=== PATIENT | male | born 1975 | race Caucasian/White ===

== ENCOUNTER 2020-03-02 16:33 | Emergency (ER) | payer OTHER ==
[2020-03-02 16:46] VITALS: BP 122/84; PULSE 70; TEMP 99; BMI 24.3
[2020-03-02] MEDS ORDERED: RABIES VACCINE (PCEC)/PF 2.5 UNIT/VIAL IM ONE ×2 (16:50→17:40)
[2020-03-02] MEDS ORDERED: RABIES IMMUNE GLOBULIN 300 UNITS/1 ML VIAL IM ONE (16:50)
--- NOTE | 2020-03-02 16:55 | PDOC ---
History of Present Illness - General Chief Complaint: Bite Stated Complaint: RACOON BITE Time Seen by Provider: 03/02/20 16:36 - History of Present Illness Initial Comments: 03/02/20 16:52 45 years old no significant past medical history traps animals for hobby. Presents to the ED status post raccoon bite. Patient had trapped squirrels in his backyard was bitten and scratched by a squirrel last Wednesday seen in a emergency department was given Augmentin and tetanus was updated. Today had accidentally trapped a raccoon in 1 of the squirrel traps while releasing the animal he was attacked by the animal he was bitten and scratched on his left bicep right and left cheek through a mask and right hand. Complaining of mild discomfort at the sites unclear if there was breakdown of skin there are slight rios at the sites. Past History - Medical History Allergies/Adverse Reactions: Allergies Allergy/AdvReac Type Severity Reaction Status Date / Time ANESTHESIA Allergy Uncoded 03/02/20 16:35 Home Medications: Ambulatory Orders NK [No Known Home Medication] 03/02/20 COPD: No Other medical history: DENIES - Psycho-Social/Smoking History Smoking History: Never smoked - Substance Abuse Hx (Audit-C & DAST Scrn) How often the patient has a drink containing alcohol: Monthly or less Number of drinks the patient has on a typical day: 1 or 2 How often the patient has six or more drinks on one occasion: Never Score: In Men: 4 or > Positive; In Women: 3 or > Positive: 1 Screen Result (Pos requires Nsg. Audit-10AR): Negative In the last yr the pt used illegal drug/Rx for NonMed reason: No Score: Yes response is considered Positive: 0 Screen Result (Positive result requires Nsg. DAST-10): Negative Review of Systems - Review of Systems Comments:: 03/02/20 16:54 ROS: A complete review of 10 out of 10 review of systems is taken and is negative apart from what is previously mentioned below and in the HPI. *Physical Exam - Vital Signs Last Vital Signs Temp Pulse Resp BP Pulse Ox 99.0 F 70 17 122/84 100 03/02/20 16:34 03/02/20 16:34 03/02/20 16:34 03/02/20 16:34 03/02/20 16:34 - Physical Exam 03/02/20 16:54 Vitals: Triage Vital signs reviewed General Appearance: No acute distress, well nourished well developed, Head: Atraumatic, Extremities: Full range of motion to all extremities, no cyanosis, clubbing, or edema Skin: Warm and dry, no rashes or lesions, no rash, no petechiae, Small kalie to left bicep right left cheek, right hand over the thenar of the thumb no obvious breakdown of skin Neuro: strength intact to all extremities, sensation intact to all extremities, gait normal Psych: Normal mood, normal affect 03/02/20 17:11 Medical Decision Making - Medical Decision Making 03/02/20 17:12 Patient meets criteria given scratch and bite by raccoon, provoked attack, rabies vaccine and immunoglobulin ordered tetanus is ready up-to-date patient is ready on antibiotics Findings, need for follow-up and strict return instruction discussed with brisa ent. Discharge - Discharge Information Problems reviewed: Yes Clinical Impression/Diagnosis: Rabies exposure, Rabies, need for prophylactic vaccination against Condition: Stable - Admission No - Follow up/Referral - Patient Discharge Instructions Patient Printed Discharge Instructions: DI for Animal Bites Additional Instructions: Continue Augmentin as prescribed. Return to the emergency department as scheduled, March 05, March 09, March 16 Return to the ED right away for any fever chills headaches or for any concerns. - Post Discharge Activity Work/Back to School Note: Rabies Vaccination F/U Miguel.
[2020-03-02] MEDS ORDERED: RABIES IMMUNE GLOBULIN 300 UNITS/1 ML VIAL ONE (17:20)
== END 2020-03-02 17:51 ==
LOC: FER 16:33
PROC: 3E0234Z Introduction of Serum, Toxoid and Vaccine into Muscle, Percutaneous Approach (ICD-10-PCS; principal; 2020-03-02)
DX: Z20.3 Contact with and (suspected) exposure to rabies (principal)
CPT/HCPCS: 90375; 90675; 99284-25

== ENCOUNTER 2020-03-16 07:17 | Emergency (ER) | payer OTHER ==
[2020-03-16 07:26] VITALS: BP 120/84; PULSE 65; TEMP 98.4; BMI 25.1
[2020-03-16] MEDS ORDERED: RABIES VACCINE (PCEC)/PF 2.5 UNIT/VIAL IM ONE ×2 (07:28→07:29)
--- NOTE | 2020-03-16 07:31 | PDOC ---
History of Present Illness - General Chief Complaint: Revisit,Rabies Injection Stated Complaint: rabies vaccine Time Seen by Provider: 03/16/20 07:28 History Source: Patient Exam Limitations: No Limitations - History of Present Illness Initial Comments: 03/16/20 07:29 45 yo male here for day 14 rabies vaccination. no complaints or symptoms. Past History - Medical History Allergies/Adverse Reactions: Allergies Allergy/AdvReac Type Severity Reaction Status Date / Time No Known Allergies Allergy Verified 03/09/20 06:49 Home Medications: Ambulatory Orders NK [No Known Home Medication] 03/02/20 COPD: No - Immunization History Immunization Up to Date: Yes - Psycho-Social/Smoking History Smoking History: Never smoked Have you smoked in the past 12 months: No Information on smoking cessation initiated: No - Substance Abuse Hx (Audit-C & DAST Scrn) How often the patient has a drink containing alcohol: Never Score: In Men: 4 or > Positive; In Women: 3 or > Positive: 0 Screen Result (Pos requires Nsg. Audit-10AR): Negative In the last yr the pt used illegal drug/Rx for NonMed reason: No Score: Yes response is considered Positive: 0 Screen Result (Positive result requires Nsg. DAST-10): Negative Review of Systems - Review of Systems Constitutional: No: Chills, Diaphoresis HEENTM: No: Eye Pain Respiratory: No: Cough, Orthopnea, Shortness of Breath Cardiac (ROS): No: Chest Pain, Edema : No: Burning, Dysuria, Discharge Musculoskeletal: No: Back Pain Integumentary: No: Bruising, Change in Color All Other Systems: Reviewed and Negative *Physical Exam - Vital Signs Last Vital Signs Temp Pulse Resp BP Pulse Ox 98.4 F 65 17 120/84 100 03/16/20 07:17 03/16/20 07:17 03/16/20 07:17 03/16/20 07:17 03/16/20 07:17 - Physical Exam 03/16/20 07:30 awake alert lungs clear bilat heart rrr no mrg skin warm and dry nuero aler oriented x3 Medical Decision Making - Medical Decision Making 03/16/20 07:30 45 yo male here for rabies vaccine. administer. dc home. Discharge - Discharge Information Problems reviewed: Yes Clinical Impression/Diagnosis: Encounter for repeat administration of rabies vaccination Condition: Improved Disposition: HOME - Admission No - Follow up/Referral - Post Discharge Activity
== END 2020-03-16 08:07 | disposition home or self-care (01) ==
LOC: FER 07:17
PROC: 3E0234Z Introduction of Serum, Toxoid and Vaccine into Muscle, Percutaneous Approach (ICD-10-PCS; principal; 2020-03-16)
DX: Z29.14 Encounter for prophylactic rabies immune globulin (principal)
CPT/HCPCS: 90675; 99281-25

== ENCOUNTER 2021-06-17 01:38 | Emergency (ER) | payer OTHER ==
[2021-06-17 02:34] VITALS: BP 145/91; PULSE 109; TEMP 99.5; BMI 26.0
[2021-06-18 23:06] LABS: SARS-CoV-2 NAA Detected (Not Detected)
== END 2021-06-17 02:57 | disposition home or self-care (01) ==
LOC: FER 01:38
DX: J40 Bronchitis, not specified as acute or chronic (principal)
CPT/HCPCS: 99283-25; C9803; U0003; U0005